=== PATIENT | female | born 1945 | race Caucasian/White ===

== ENCOUNTER → 2018-03-28 | Outpatient (CLI) | payer MEDICARE ==
[~2018-03-28] MED LIST: ESTRTP; HYDR1TAB94 PO; LEVO750 PO; MEDR2.5
[2018-03-28 13:38] LABS: Candida species (DNA Probe) Negative (NEGATIVE); G. vaginalis (DNA Probe) Negative (NEGATIVE); T. vaginalis (DNA Probe) Negative (NEGATIVE)
== END | disposition home or self-care (01) ==
LOC: LAB SHORT 09:43 → LAB 09:43
PROVIDERS: Advanced Practice Midwife
DX: N76.0 Acute vaginitis (principal)
CPT/HCPCS: 87070; 87205; 87480; 87510; 87660

== ENCOUNTER 2025-05-01 09:59 | Day surgery (SDC) | payer MEDICARE ==
[~2025-05-01] VITALS: Ht 167.6 cm; Wt 66.7 kg
[2025-05-01] VITALS (15 sets, daily range): BP systolic 108–157; BP diastolic 53–89
[~2025-05-01 09:59] MED LIST changes: +ADVIL PM PO; +ASPIRIN-ACETAM1 EAC1 PO; +EFUDEX40 GM TOP; +FERSU300 PO; +FINA5 PO; -HYDR1TAB94 PO; +HYDROCODONE-AC1 EA10 PO; +MAGNESIUM OXID500 MG PO; +MINO2.5 PO; +TUMS500 MG
[2025-05-01] MEDS ORDERED: CeFAZolin Sodium 2,000 MG in NS 100 ML IV SCH (10:20)
[2025-05-01] MEDS ORDERED: CALCIUM CIT 311 EAC7 PO (10:25)
[2025-05-01] MEDS ORDERED: MAGNESIUM CITR100 M1 PO (10:27)
[2025-05-01] MEDS ORDERED: Bupivacaine 0.5% W/EPI 1:200000 SDV 30 ML Vial ONE (10:29)
--- NOTE | 2025-05-01 10:40 | NUR ---
Ambulatory in Day Surgery History, Chart, Medications and Allergies reviewed before start of procedure. Pre-Op teaching done. Pt verbalizes understanding. Patient States Post-Procedure ride home has been arranged.
--- NOTE | 2025-05-01 11:15 | NUR ---
1100- MAGALY FROM [facility] HERE FOR INJECTION.
[2025-05-01] MEDS ORDERED: Rocuronium Bromide 10 MG/ML 5ML Injection IV ONE (11:51)
[2025-05-01] MEDS ORDERED: FentaNYL Citrate 50 MCG/ML 2 ML Injection ONE (12:07)
[2025-05-01] MEDS ORDERED: Ondansetron HCl 2 MG / ML 2ML Vial ONE (12:15)
[2025-05-01] MEDS ORDERED: Dexamethasone Sod Phos 10 MG/ML 1ML VIAL ONE (12:15)
[2025-05-01] MEDS ORDERED: HYDROmorphone HCl/Pf 1MG SYR ONE ×2 (13:12→13:20)
[2025-05-01] MEDS ORDERED: HYDROmorphone HCl/Pf 1MG SYR IV PRN ×2 (14:10→14:15)
[2025-05-01] MEDS ORDERED: Metoclopramide HCl 5MG / ML 2ML Vial IV PRN (14:10)
[2025-05-01] MEDS ORDERED: FentaNYL Citrate 50 MCG/ML 2 ML Injection IV PRN ×3 (14:15→14:25)
[2025-05-01] MEDS ORDERED: Albuterol 2.5 MG/3 ML VIAL INH PRN (14:15)
[2025-05-01] MEDS ORDERED: ePHEDrine Sulfate 50 MG/ML 1ML Injection IV PRN (14:15)
[2025-05-01] MEDS ORDERED: Ondansetron HCl 2 MG / ML 2ML Vial IV PRN ×2 (14:20→14:30)
[2025-05-01] MEDS ORDERED: HYDROcodone 5-APAP 325 TAB PO PRN (14:30)
[2025-05-01] MEDS ORDERED: FLU VACC TS2025(65UP)/MF59C/PF 45 MCG/0.5 ML SYRINGE IM SCH (14:30)
--- NOTE | 2025-05-01 15:08 | NUR ---
PT ARRIVED TO [address] [facility] PACU TRANSFERRED PT FROM [facility] TO BED. DRESSING TO R CHEST CDI. GONZALO COMPRESSED. SILVER DOLLAR SIZED DRAINAGE NOTED ON BREAST BINDER AT GONZALO INSERTION SITE. ORIENTED PT TO USE OF CALL LIGHT/FALL PREVENTION PRECAUTIONS. PROVIDED WATER, JELLO, CRACKERS. PT DENIES PAIN OR N/V AT THIS TIME. CALL LIGHT IN REACH
--- NOTE | 2025-05-01 17:05 | NUR ---
SUMMARY PT POD 0 R MASTECTOMY W/GONZALO DRAIN. PT WAS NAUSEATED, MEDICATED PER ORDERS W/ZOFRAN, PT STATED NAUSEA SLIGHTLY IMPROVED. HAS NOT TAKEN MUCH PO YET. DENIES PAIN AT THIS TIME. BREAST BINDER IN PLACE. GONZALO PUTTING OUT SCANT SS DRAINAGE. BREAST BINDER HAS SPOT OF DRAINAGE FROM GONZALO INSERTION SITE. HAS NOT PROGRESSED SINCE ARRIVING TO UNIT FROM PACU. PT HAS NOT BEEN OOB POST OP. INSTRUCTED PT TO CALL FOR ASSISTANCE TO GET UP. VSS. CALL LIGHT IN REACH.
[2025-05-01] MEDS ORDERED: Prochlorperazine Edisylate 10 mg Vial IV PRN (18:05)
--- NOTE | 2025-05-01 18:18 | NUR ---
BLEEDING FROM GONZALO INSERTION SITE BLEEDING FROM INSERTION SITE PROGRESSED SLIGHTLY FROM EARLIER ASSESSMENT. FEW SMALL SPOTS OF BLOOD NOTED ON AREVALO.
--- NOTE | 2025-05-01 18:48 | NUR ---
REINFORCED GONZALO DRESSING WITH DRAIN SPONGES AND PLACED NEW BREAST BINDER.
--- NOTE | 2025-05-01 20:15 | NUR ---
ASSUMED CARE POD 0 S/P RIGHT MASECTOMY. DRESSING- GAUZE, ABD, AND BINDER CDI. GONZALO TO RIGHT UPPER ABD; DRESSING CHANGED DUE TO EXCESSIVE DRAINAGE- PER DAY RN SURGEON IS AWARE. 10ML SEROUS FLUID REMOVED FROM GONZALO, BULB COMPRESSED AND DRESSING NOW CDI. ABLE TO VOID AND AMBULATE TO BATHROOM WITH SBA. IV PATENT. PT DENIES N/V, TOLERATING CRACKERS AND WATER. DENIES PAIN. SCDS IN PLACE. PT IS PLEASANT AND COOPERATIVE WITH CARE. DENIES NEEDS AT THIS TIME AND CURRENTLY RESTING IN BED WITH CALL LIGHT IN REACH.
[2025-05-02 02:57] VITALS: BP 119/58
--- NOTE | 2025-05-02 04:38 | NUR ---
SHIFT SUMMARY POD 1 S/P RIGHT MASTECTOMY. DRESSING TO RIGHT CHEST AREA CDI WITH BINDER IN PLACE. GONZALO TO RIGHT SIDE DRAINING SEROUS FLUID, DRESSING CHANGED AND REINFORCED DUE TO LEAKING AROUND INSERTION SITE. PAIN MANAGED OER EMAR. IS AMB IN ROOM AND VOIDING. MIRIAM PO INTAKE, CURRENTLY RESTING IN BED WITH EYES CLOSED, RESP EVEN AND CALL LIGHT IN REACH
[2025-05-02 07:03] VITALS: BP 133/57
--- NOTE | 2025-05-02 10:24 | NUR ---
DC'D @1025 ASSUMED CARE OF PT @0700. AXO4. VSS. BREAST BINDER WITH DRIED BLOOD TO R SIDE, DRESSING WITH LIGHT DRAINAGE. DRESSING CHANGED WITH DR ATKINS AT BEDSIDE. NEW BREAST BINDER RECIEVED AND GIVEN TO PT. GONZALO DRAIN STRIPPED WITH DR ATKINS - PT EDUCATED ON HOW TO DO THIS PROPERLY. PT DENYING NEED FOR PAIN MEDS. FAMILY AT BEDSIDE. ORDERS RECEIVED FOR DC. PT EDUCATED REGARDING POSTOP CARE, GONZALO DRAIN CARE AND CHARTING OF OUTPUT, FOLLOWUP APPOINTMENT, PAIN MEDS, ETC. DRESSINGS GIVEN TO PT FOR HOME USE WELL DC INSTRUCTIOS. IV PULLED. PT WALKED OUT OF ROOM @1025.
== END 2025-05-02 10:36 | disposition home or self-care (01) ==
LOC: NM 09:59 → ORSCMMR 09:59 → NM 11:30 → SURS 14:45 → NM 05-02 10:36
PROVIDERS: Surgery
PROC: 0HBT0ZZ Excision of Right Breast, Open Approach (ICD-10-PCS; principal; 2025-05-01 12:00)
PROC: 07B50ZX Excision of Right Axillary Lymphatic, Open Approach, Diagnostic (ICD-10-PCS; principal; 2025-05-01 12:00)
DX: C50.411 Malignant neoplasm of upper-outer quadrant of right female breast (principal); C77.3 Secondary and unspecified malignant neoplasm of axilla and upper limb lymph nodes; Z17.0 Estrogen receptor positive status [ER+]; Z17.21 Progesterone receptor positive status; Z17.31 Human epidermal growth factor receptor 2 positive status; Z79.899 Other long term (current) drug therapy
CPT/HCPCS: 38792; 88307; 88342; A9270; A9520; J0690; J0780; J1100; J1171; J2405; J2704; J3010; J7120; Q9968